=== PATIENT | male | born 1965 | race Caucasian/White ===

== ENCOUNTER 2017-03-28 10:48 | Emergency (ER) | payer BC, OTHER ==
[~2017-03-28] VITALS: Ht 179.1 cm; Wt 106.1 kg
[~2017-03-28 10:48] MED LIST: ASPI81 PO; ATEN-102 PO; CHLORO250 PO; COUM4TAB7 PO; DIGO0.25 PO; GLUMETZA PO; MEVA40TA6 PO; PARO10TA PO; TRIL135C PO; VITA20002 PO; [UNRECOGNIZED DRUG - OTHER] SQ
[2017-03-28 10:53] VITALS: BP 140/79; PULSE 85; RESP 16; TEMP 98.6; O2SAT 96
[2017-03-28] MEDS ORDERED: GLUM1000 PO (11:11)
[2017-03-28] MEDS ORDERED: WARF-20 PO (11:11)
[2017-03-28] MEDS ORDERED: FENO160T PO (11:11)
[2017-03-28] MEDS ORDERED: DIGO0.25 PO (11:11)
[2017-03-28] MEDS ORDERED: ASPI81CH CHEW (11:11)
[2017-03-28] MEDS ORDERED: LOVA40TA PO (11:11)
[2017-03-28] MEDS ORDERED: GLUM500T PO (11:11)
[2017-03-28] MEDS ORDERED: PARO37.5CR PO (11:11)
[2017-03-28] MEDS ORDERED: KETOROLAC TROMETHAMINE 60 MG/2 ML (IM) VIAL IM ONE (11:30)
--- NOTE | 2017-03-28 11:40 | PD ---
HPI . Left heel pain Chief Complaint: Musculoskeletal Complaint Time Seen by Provider: 11:03 Travel History International Travel<30 days: No Contact w/Intl Traveler<30days: No Traveled to known affect area: No History of Present Illness HPI 51-year-old male presents emergency department for evaluation of left heel pain. The pain originally started on Friday. Patient states that he has had this pain in the past in both of his heels. He denies any aggravating activity. He states he was wearing tennis shoes on Friday. Patient denies any chest pain, short of breath, fever, chills, malaise. Patient denies any trauma or injury to the foot. Patient denies any radiating pain. Patient does have a history of diabetes and has diabetic neuropathy of both of his feet. There is no edema, ecchymosis, erythema or cyanosis noted in left foot. Full range of motion with both dorsi and plantar flexion. PFSH Past Medical History Arthritis: No Asthma: No Atrial Fibrillation: Yes (DIAGNOSED 1991- HX OF [facility] WITH [facility]VR) Autoimmune Disease: No Blood Disorders: No Anxiety: No Depression: Yes Heart Rhythm Problems: Yes (CHRONIC AFIB) Cancer: No Cardiac Catheterization: Yes Cardiovascular Problems: Yes (htn on meds, OK x 1 with stents, bypass 5 vessels ) High Cholesterol: Yes Chemotherapy: No Chest Pain: Yes Congestive Heart Failure: No COPD: No Cerebrovascular Accident: No Coronary Artery Disease: Yes Diabetes: Yes (type 2) Diminished Hearing: No Endocrine: No GERD: No Glaucoma: No Genitourinary: Yes Headaches: No Hepatitis: No Hiatal Hernia: No Hypertension: Yes Immune Disorder: No Kidney Stones: Yes Musculoskeletal: No Neurologic: Yes (DIZZINESS AND HOT FLASHES X 2-3 YRS) Psychiatric: Yes Reproductive: No Respiratory: No Migraines: No Myocardial Infarction: Yes (OK IN 2001) Radiation Therapy: No Renal Failure: No Seizures: No Sickle Cell Disease: No Sleep Apnea: No Thyroid Disease: No Ulcer: No PNEUMOCCOCAL Vaccine (Year): 2 Past Surgical History Abdominal Surgery: No AICD: No Arteriovenous Shunt: No Cardiac Surgery: Yes (CARDIAC CATH 2001, 2003) Coronary Artery Bypass Graft: Yes Coronary Stent: Yes (2001) Ear Surgery: No Endocrine Surgery: No Eye Surgery: No Genitourinary Surgery: Yes (LITHOTRIPSY FOR KIDNEY STONE- 2007) Gynecologic Surgery: No Insulin Pump: No Joint Replacement: No Oral Surgery: No Pacemaker: No Thoracic Surgery: No Tonsillectomy: Yes Other Surgery: Yes (PILONIDAL CYST REMOVED) Social History Alcohol Use: Yes (VERY RARELY) Tobacco Use: Yes (<1 PPD) Substance Use: No Allergies-Medications (Allergen,Severity, Reaction): Coded Allergies: No Known Allergies (Verified , 03/28/17) Reported Meds & Prescriptions Reported Meds & Active Scripts Active Reported Warfarin 4 Mg Tab 4 Mg PO DAILY Fenofibrate 160 Mg Tab 160 Mg PO DAILY Lovastatin 40 Mg Tab 40 Mg PO DAILY Glumetza (Metformin HCl) 1,000 Mg Asa 1,000 Mg PO HS With evening meal Glumetza (Metformin HCl) 500 Mg Asa 500 Mg PO DAILY With evening meal Paxil CR (Paroxetine HCl) 37.5 Mg Tab 37.5 Mg PO DAILY Digoxin 0.25 Mg Tab 0.25 Mg PO DAILY Aspirin 81 Mg Chew 81 Mg CHEW DAILY Review of Systems Except as stated in HPI: all other systems reviewed are Neg Physical Exam Narrative GENERAL: Well-nourished, well-developed 51-year-old male patient in no acute distress. Nontoxic appearing SKIN: Focused skin assessment warm/dry. HEAD: Normocephalic. Atraumatic EYES: No scleral icterus. No injection or drainage. NECK: Supple, trachea midline. No JVD or lymphadenopathy. CARDIOVASCULAR: Regular rate and rhythm without murmurs, gallops, or rubs. RESPIRATORY: Breath sounds equal bilaterally. No accessory muscle use. GASTROINTESTINAL: Abdomen soft, non-tender, nondistended. MUSCULOSKELETAL: No cyanosis, ecchymosis, erythema, or edema. Full range of motion with both dorsi and plantar flexion. BACK: Nontender without obvious deformity. No CVA tenderness. Data Data Last Documented VS Vital Signs Date Time Temp Pulse Resp B/P (MAP) Pulse Ox O2 Delivery O2 Flow Rate FiO2 03/28/17 10:53 98.6 85 16 140/79 (99) 96 Orders Orders Ketorolac Inj (Toradol Inj) (03/28/17 11:30) Ice/Cold Pack (03/28/17 11:23) Splint Or Brace Apply/Monitor (03/28/17 11:23) MDM Medical Decision Making Medical Screen Exam Complete: Yes Emergency Medical Condition: Yes Differential Diagnosis Differential diagnoses include but not limited to plantar fasciitis, hell pain, foot contusion, Achilles tendinitis Narrative Course 51-year-old male patient presents emergency department for evaluation of left heel pain that started without any injury or trauma last Friday. He should states he has had this pain before and both of his heels. Patient has a history of diabetes and does have diabetic neuropathy in both lower extremities. Patient denies any chest pain, short of breath, fever, chills, malaise. There is no edema, ecchymosis, erythema, cyanosis to the left lower extremity. Patient has full range of motion with dorsi and plantar flexion. Based on patient's symptoms, clinical presentation, vital sign review and physical exam it is not necessary to admit the patient to the hospital or keep the patient in the emergency department for further evaluation. Patient will be given an IM injection of Toradol, ice applied an Lew wrap applied to left foot and discharged home with instructions to follow-up with flap presser if symptoms persist. Diagnosis Primary Impression: Pain, heel Qualified Codes: M79.672 - Pain in left foot Referrals: [facility] Patient Instructions: General Instructions, How to Give Foot Care (GEN) Additional Instructions: Please return to emergency department if your symptoms return or worsen. Follow up with flap presser if symptoms persist. Avoid walking around without any shoes. Always wear supportive shoes. May apply ice and use [id number] Motrin as needed for pain and inflammation. Disposition: 01 DISCHARGE HOME Condition: Stable DanaRosa salamanca [place] MARRUFO Mar 28, 2017 11:40
== END 2017-03-28 12:19 | disposition home or self-care (01) ==
LOC: PHEFT 10:48
DX: M79.672 Pain in left foot (principal); I48.91 Unspecified atrial fibrillation; E11.9 Type 2 diabetes mellitus without complications; Z79.01 Long term (current) use of anticoagulants; Z72.0 Tobacco use
CPT/HCPCS: 96372; 99284; J1885